=== PATIENT | female | born 1960 | race Caucasian/White ===

== ENCOUNTER 2017-06-11 19:22 | Inpatient (IN) ==
[2017-06-11] MEDS ORDERED: ASPIRIN 325 MG TABLET PO STA (19:46)
[2017-06-11] MEDS ORDERED: ASPIRIN 325 MG TABLET ONE (20:02)
[2017-06-11 20:28] LABS: Basophils # 0.1 10*3/uL (0.0-0.2); Basophils % 0.4 % (0.0-0.8); Eosinophils # 0.3 10*3/uL (0.0-0.87); Eosinophils % 2.2 % (0.00-10.9); Hematocrit 37.6 VOL% (35.7-47.0); Hemoglobin 12.4 GM/DL (12.0-16.0); Immature Granulocytes % 1.1 %; Immature Granulocytes Absolute 0.16 #; Lymphocytes # 3.6 10*3/uL (1.4-4.0); Lymphocytes % 24.7 % (21.3-54.2); Mean Corpuscular Hemoglobin 27 PG (27-34); Mean Platelet Volume 9.9 FL (9.6-12.0); Monocytes # 0.7 10*3/uL (0.11-0.8); Monocytes % 4.6 % (1.7-12.7); Neutrophils # 9.7 10*3/uL (1.4-7.4); Platelet Count 431 T/CUMM (130-400); Red Blood Count 4.53 MC/CUMM (3.8-5.5); Red Cell Distribution Width 13.6 % (9.3-17.3); White Blood Count 14.4 T/CUMM (4-12)
[2017-06-11 20:59] LABS: Alanine Aminotransferase 132 U/L (13-56); Albumin 3.5 G/DL (3.4-5.0); Alkaline Phosphatase 131 U/L (45-117); Aspartate Amino Transferase 82 U/L (0-37); Bilirubin,Total < 0.39 MG/DL (0.2-1.0); Blood Urea Nitrogen 13 MG/DL (7-18); Glucose 448 MG/DL (74-106); Osmolality,Calculated 288.1 MOS/KG (273-304); Potassium 4.4 MMOL/L (3.5-5.1); Sodium 135 MMOL/L (136-145); Total Protein 7.2 G/DL (6.4-8.3)
[2017-06-11] MEDS ORDERED: LORazepam 2 MG/1 ML VIAL IV STA (22:10)
[2017-06-11] MEDS ORDERED: INSULIN REGULAR 100 UNIT/ML IV STA (22:11)
[2017-06-11] MEDS ORDERED: SODIUM CHLORIDE 0.9% 1,000 ML IV STA (22:12)
[2017-06-11] MEDS ORDERED: ONDANSETRON 4 MG/2 ML VIAL IV PRN (22:15)
[2017-06-11] MEDS ORDERED: LORazepam 2 MG/1 ML VIAL ONE (22:26)
[2017-06-11] MEDS ORDERED: INSULIN REGULAR 100 UNIT/ML ONE (22:27)
[2017-06-11] MEDS ORDERED: hydrALAZINE 20 MG/1 ML VIAL IV STA (23:30)
[2017-06-11] MEDS ORDERED: hydrALAZINE 20 MG/1 ML VIAL ONE (23:39)
[2017-06-12] MEDS ORDERED: LABETALOL 20 MG/4 ML SYRINGE IV STA (00:31)
[2017-06-12] MEDS ORDERED: LABETALOL 20 MG/4 ML SYRINGE IV ONE (00:34)
[2017-06-12] MEDS: SODIUM CHLORIDE 0.9% 1,000 ML IV SCH ×3 (01:36→14:48)
[2017-06-12] MEDS ORDERED: ALUMINUM/MAGNES/SIMETH MAX STR 30 ML UDCUP PO PRN (02:04)
[2017-06-12] MEDS ORDERED: PANTOPRAZOLE 40 MG TABLET PO ONE (02:10)
[2017-06-12] MEDS ORDERED: PNEUMOCOCCAL VACCINE (23 VALENT) 0.5 ML VIAL IM ONE (09:00)
[2017-06-12] MEDS: INSULIN LISPRO 100 UNIT/ML SUBCUT SCH ×4 (09:24→20:09)
[2017-06-12] MEDS: PANTOPRAZOLE 40 MG TABLET PO SCH (09:24)
[2017-06-12] MEDS ORDERED: NITROGLYCERIN SL 0.4 MG TABLET SL PRN (12:29)
[2017-06-12] MEDS ORDERED: oxyCODONE IR 5 MG TABLET PO PRN (12:29)
[2017-06-12] MEDS ORDERED: INSULIN PUMP CARTRIDGE MISC SCH (12:30)
[2017-06-12] MEDS ORDERED: INSULIN REGULAR ** CONC 500 UNIT/ML ** 20 ML VIAL SUBCUT SCH (12:30)
[2017-06-12] MEDS ORDERED: hydrALAZINE 20 MG/1 ML VIAL IV PRN (13:00)
[2017-06-12] MEDS ORDERED: DEXTROSE 50% 25 GM/50 ML VIAL IV PRN (13:06)
[2017-06-12] MEDS ORDERED: GLUCAGON 1 MG VIAL IM PRN (13:06)
[2017-06-12] MEDS: CARVEDILOL 6.25 MG TABLET PO SCH ×2 (14:46→16:09)
[2017-06-12] MEDS: ASPIRIN EC 81 MG TABLET PO SCH (14:46)
[2017-06-12] MEDS: ISOSORBIDE MONONITRATE 30 MG TABLET PO SCH (14:46)
[2017-06-12] MEDS: KETOROLAC 0.5% OPH SOLN 3 ML BOTTLE LEFT EYE SCH ×3 (14:46→20:08)
[2017-06-12] MEDS: hydroCHLOROthiazide 25 MG TABLET PO SCH (14:46)
[2017-06-12 16:02] LABS: Troponin I Only 0.635 NG/ML (0.00-0.045)
[2017-06-12] MEDS: DICLOFENAC 1% GEL 100 GM TUBE TOP SCH ×2 (17:05→20:08)
[2017-06-12 19:25] LABS: Troponin I Only 0.584 NG/ML (0.00-0.045)
[2017-06-12] MEDS: ATORVASTATIN 40 MG TABLET PO SCH (20:07)
[2017-06-12] MEDS: CITALOPRAM 20 MG TABLET PO SCH (20:07)
[2017-06-12] MEDS: MULTIVITAMIN (BEROCCA) TABLET PO SCH (20:07)
[2017-06-12] MEDS: OMEGA 3 ACID ETHYL ESTERS 1 GM CAPSULE PO SCH (20:07)
[2017-06-12] MEDS: MAGNESIUM OXIDE 400 MG TABLET PO SCH (20:07)
[2017-06-12] MEDS: GABAPENTIN 300 MG CAPSULE PO SCH (20:07)
[2017-06-12] MEDS: tiZANidine 4 MG TABLET PO SCH (20:08)
[2017-06-12] MEDS: MIRTAZAPINE 15 MG TABLET PO SCH (20:08)
[2017-06-12] MEDS: rOPINIRole 1 MG TABLET PO SCH (20:08)
[2017-06-12] MEDS: LISINOPRIL 20 MG TABLET PO SCH (20:08)
[2017-06-12] MEDS: LATANOPROST 0.005% OPH SOLN 2.5 ML BOTTLE BOTH EYES SCH (20:08)
[2017-06-13] MEDS: SODIUM CHLORIDE 0.9% 1,000 ML IV SCH ×3 (01:05→19:32)
[2017-06-13 06:44] LABS: Basophils # 0.1 10*3/uL (0.0-0.2); Basophils % 0.5 % (0.0-0.8); Eosinophils # 0.4 10*3/uL (0.0-0.87); Eosinophils % 2.9 % (0.00-10.9); Hematocrit 36.7 VOL% (35.7-47.0); Hemoglobin 11.9 GM/DL (12.0-16.0); Immature Granulocytes % 0.7 %; Lymphocytes # 3.6 10*3/uL (1.4-4.0); Mean Corpuscular HGB Conc 32.4 GM/DL (32-36); Mean Corpuscular Hemoglobin 27 PG (27-34); Mean Corpuscular Volume 84.6 FL (87-102); Mean Platelet Volume 9.8 FL (9.6-12.0); Monocytes # 0.7 10*3/uL (0.11-0.8); Monocytes % 5.4 % (1.7-12.7); Neutrophils # 8.5 10*3/uL (1.4-7.4); Neutrophils % 63.5 % (38.7-73.9); Platelet Count 384 T/CUMM (130-400); Red Blood Count 4.34 MC/CUMM (3.8-5.5); Red Cell Distribution Width 13.9 % (9.3-17.3); White Blood Count 13.4 T/CUMM (4-12)
[2017-06-13 06:51] LABS: INR 0.9; PT Patient Result 9.8 SECS
[2017-06-13 07:09] LABS: Calcium 8.4 MG/DL (8.5-10.1); Osmolality,Calculated 282.8 MOS/KG (273-304); Potassium 4.1 MMOL/L (3.5-5.1)
[2017-06-13 07:10] LABS: Apearance,Urine CLEAR (Clear); Bilirubin,Urine Negative (Negative); Blood, Urine Negative (Negative); Glucose,Urine (UA) 50 mg/dL (Negative); Ketones,Urine Negative (Negative); Nitrite,Urine Negative (Negative); Protein,Urine Negative; RBC,Urine <1 /HPF (0-4); Squamous Epithelial Cell,Urine Occasional /HPF (0-10); Urine Color Yellow (Yellow); Urine Urobilinogen < 2.0 EU/DL (0.2-1.0); WBC,Urine <1 /HPF (0-6)
[2017-06-13 07:21] LABS: Albumin 3.2 G/DL (3.4-5.0); Bilirubin,Total 0.4 MG/DL (0.2-1.0); Calcium 8.4 MG/DL (8.5-10.1); Total Protein 6.7 G/DL (6.4-8.3)
[2017-06-13 07:22] LABS: Ferritin 96.4 ng/ml (8-252); Free T4 (Free Thyroxine) 1.11 NG/DL (0.76-1.46); Osmolality,Calculated 285.5 MOS/KG (273-304); Potassium 4.2 MMOL/L (3.5-5.1); Risk Ratio 4.75; Thyroid Stimulating Hormone 1.9 uIU/ml (0.358-3.74); VLDL CHOLESTEROL 56.6 MG/DL
[2017-06-13 08:17] LABS: Hepatitis A Ab IgM Result Negative (Negative); Hepatitis B Core IgM Quant 0.21 Index; Hepatitis B Core IgM Result Negative (Negative); Hepatitis B Surface Ag Quant < 0.10 Index; Hepatitis B Surface Ag Result Negative (Negative); Hepatitis C Virus Ab Quant 0.03 Index; Hepatitis C Virus Ab Result Negative (Negative)
[2017-06-13] MEDS ORDERED: INSULIN REGULAR ** CONC 500 UNIT/ML ** 20 ML VIAL SUBCUT ONE (09:00)
[2017-06-13] MEDS: INSULIN LISPRO 100 UNIT/ML SUBCUT SCH ×2 (09:08→12:44)
[2017-06-13] MEDS: CARVEDILOL 6.25 MG TABLET PO SCH (09:08)
[2017-06-13] MEDS: hydroCHLOROthiazide 25 MG TABLET PO SCH (09:10)
[2017-06-13] MEDS: ASPIRIN EC 81 MG TABLET PO SCH (09:10)
[2017-06-13] MEDS: KETOROLAC 0.5% OPH SOLN 3 ML BOTTLE LEFT EYE SCH ×4 (09:10→22:20)
[2017-06-13] MEDS: LISINOPRIL 20 MG TABLET PO SCH ×2 (09:11→22:22)
[2017-06-13] MEDS: PANTOPRAZOLE 40 MG TABLET PO SCH (09:11)
[2017-06-13] MEDS: OMEGA 3 ACID ETHYL ESTERS 1 GM CAPSULE PO SCH ×2 (09:11→22:21)
[2017-06-13] MEDS: MAGNESIUM OXIDE 400 MG TABLET PO SCH ×2 (09:11→22:22)
[2017-06-13] MEDS: ISOSORBIDE MONONITRATE 30 MG TABLET PO SCH (09:11)
[2017-06-13] MEDS: rOPINIRole 1 MG TABLET PO SCH ×2 (09:11→22:22)
[2017-06-13] MEDS: DICLOFENAC 1% GEL 100 GM TUBE TOP SCH ×4 (09:12→22:23)
[2017-06-13] MEDS: tiZANidine 4 MG TABLET PO SCH ×2 (09:12→22:22)
[2017-06-13] MEDS: metFORMIN 500 MG TABLET PO SCH (09:15)
[2017-06-13] MEDS ORDERED: diphenhydrAMINE CAP 25 MG CAPSULE PO ONE (10:00)
[2017-06-13] MEDS ORDERED: DIAZEPAM 5 MG TABLET PO ONE (10:00)
[2017-06-13] MEDS ORDERED: HEPARIN/NACL 0.9% 2 UNITS/ML 1,000 ML IV ONE ×2 (12:23→12:28)
[2017-06-13] MEDS ORDERED: LIDOCAINE 1% 20 ML VIAL ONE (12:23)
[2017-06-13] MEDS ORDERED: MIDAZOLAM 2 MG/2 ML VIAL ONE (12:46)
[2017-06-13] MEDS ORDERED: HYDROmorphone 2 MG/1 ML VIAL ONE (12:46)
[2017-06-13] MEDS ORDERED: NITROGLYCERIN DRIP 50 MG/250 ML BOTTLE IV ONE (12:54)
[2017-06-13] MEDS ORDERED: VERAPAMIL 5 MG/2 ML VIAL ONE (12:54)
[2017-06-13] MEDS ORDERED: ENOXAPARIN 60 MG/0.6 ML SYRINGE ONE (12:57)
[2017-06-13] MEDS ORDERED: ENOXAPARIN 30 MG/0.3 ML SYRINGE ONE (12:59)
[2017-06-13] MEDS ORDERED: LABETALOL 20 MG/4 ML SYRINGE IV ONE (13:20)
[2017-06-13] MEDS ORDERED: BIVALIRUDIN 250 MG VIAL IV ONE (13:22)
[2017-06-13] MEDS ORDERED: TICAGRELOR 90 MG TABLET ONE (13:22)
[2017-06-13] MEDS ORDERED: SODIUM CHLORIDE 0.9% 1,000 ML IV SCH (14:00)
[2017-06-13] MEDS ORDERED: cloNIDine 0.1 MG TABLET ONE ×2 (14:25→14:26)
[2017-06-13] MEDS: CARVEDILOL 25 MG TABLET PO SCH (19:37)
[2017-06-13] MEDS: LATANOPROST 0.005% OPH SOLN 2.5 ML BOTTLE BOTH EYES SCH (22:20)
[2017-06-13] MEDS: MULTIVITAMIN (BEROCCA) TABLET PO SCH (22:21)
[2017-06-13] MEDS: MIRTAZAPINE 15 MG TABLET PO SCH (22:21)
[2017-06-13] MEDS: TICAGRELOR 90 MG TABLET PO SCH (22:21)
[2017-06-13] MEDS: GABAPENTIN 300 MG CAPSULE PO SCH (22:22)
[2017-06-13] MEDS: CITALOPRAM 20 MG TABLET PO SCH (22:22)
[2017-06-13] MEDS: ATORVASTATIN 40 MG TABLET PO SCH (22:23)
[2017-06-14] MEDS: SODIUM CHLORIDE 0.9% 1,000 ML IV SCH ×3 (01:49→18:42)
[2017-06-14 04:45] LABS: Basophils # 0.1 10*3/uL (0.0-0.2); Basophils % 0.4 % (0.0-0.8); Eosinophils # 0.3 10*3/uL (0.0-0.87); Eosinophils % 2.4 % (0.00-10.9); Hematocrit 31.6 VOL% (35.7-47.0); Hemoglobin 10.3 GM/DL (12.0-16.0); Immature Granulocytes % 0.7 %; Lymphocytes # 2.5 10*3/uL (1.4-4.0); Lymphocytes % 18.2 % (21.3-54.2); Mean Corpuscular HGB Conc 32.6 GM/DL (32-36); Mean Corpuscular Hemoglobin 27 PG (27-34); Mean Corpuscular Volume 83.6 FL (87-102); Mean Platelet Volume 10.2 FL (9.6-12.0); Monocytes # 0.8 10*3/uL (0.11-0.8); Monocytes % 5.4 % (1.7-12.7); Neutrophils # 10.1 10*3/uL (1.4-7.4); Neutrophils % 72.9 % (38.7-73.9); Platelet Count 351 T/CUMM (130-400); Red Blood Count 3.78 MC/CUMM (3.8-5.5); Red Cell Distribution Width 13.9 % (9.3-17.3); White Blood Count 13.8 T/CUMM (4-12)
[2017-06-14 05:25] LABS: Blood Urea Nitrogen 13 MG/DL (7-18); Calcium 8.5 MG/DL (8.5-10.1); Glucose 201 MG/DL (74-106); Osmolality,Calculated 280.7 MOS/KG (273-304); Sodium 138 MMOL/L (136-145)
[2017-06-14 05:27] LABS: Troponin I Only 0.197 NG/ML (0.00-0.045)
[2017-06-14] MEDS: rOPINIRole 1 MG TABLET PO SCH ×2 (09:23→22:15)
[2017-06-14] MEDS: ASPIRIN EC 81 MG TABLET PO SCH (09:24)
[2017-06-14] MEDS: metFORMIN 500 MG TABLET PO SCH (09:24)
[2017-06-14] MEDS: tiZANidine 4 MG TABLET PO SCH ×2 (09:24→22:16)
[2017-06-14] MEDS: OMEGA 3 ACID ETHYL ESTERS 1 GM CAPSULE PO SCH ×2 (09:24→22:11)
[2017-06-14] MEDS: PANTOPRAZOLE 40 MG TABLET PO SCH (09:24)
[2017-06-14] MEDS: TICAGRELOR 90 MG TABLET PO SCH (09:24)
[2017-06-14] MEDS: MAGNESIUM OXIDE 400 MG TABLET PO SCH ×2 (09:25→22:11)
[2017-06-14] MEDS: ISOSORBIDE MONONITRATE 30 MG TABLET PO SCH (09:25)
[2017-06-14] MEDS: LISINOPRIL 20 MG TABLET PO SCH ×2 (09:25→22:12)
[2017-06-14] MEDS: DICLOFENAC 1% GEL 100 GM TUBE TOP SCH ×3 (09:25→22:17)
[2017-06-14] MEDS: KETOROLAC 0.5% OPH SOLN 3 ML BOTTLE LEFT EYE SCH ×3 (09:25→22:04)
[2017-06-14] MEDS: CARVEDILOL 25 MG TABLET PO SCH ×2 (09:25→16:41)
[2017-06-14] MEDS ORDERED: CLOPIDOGREL 75 MG TABLET PO STA (17:18)
[2017-06-14] MEDS: CITALOPRAM 20 MG TABLET PO SCH (22:09)
[2017-06-14] MEDS: MULTIVITAMIN (BEROCCA) TABLET PO SCH (22:09)
[2017-06-14] MEDS: ATORVASTATIN 40 MG TABLET PO SCH (22:10)
[2017-06-14] MEDS: GABAPENTIN 300 MG CAPSULE PO SCH (22:12)
[2017-06-14] MEDS: MIRTAZAPINE 15 MG TABLET PO SCH (22:14)
[2017-06-14] MEDS: LATANOPROST 0.005% OPH SOLN 2.5 ML BOTTLE BOTH EYES SCH (22:20)
[2017-06-15 05:38] LABS: Basophils # 0.1 10*3/uL (0.0-0.2); Basophils % 0.4 % (0.0-0.8); Eosinophils # 0.3 10*3/uL (0.0-0.87); Eosinophils % 2.4 % (0.00-10.9); Hematocrit 31.8 VOL% (35.7-47.0); Hemoglobin 10.4 GM/DL (12.0-16.0); Immature Granulocytes % 0.6 %; Immature Granulocytes Absolute 0.09 #; Lymphocytes % 21.8 % (21.3-54.2); Mean Corpuscular HGB Conc 32.7 GM/DL (32-36); Mean Corpuscular Hemoglobin 28 PG (27-34); Mean Corpuscular Volume 84.4 FL (87-102); Mean Platelet Volume 10.2 FL (9.6-12.0); Monocytes # 0.8 10*3/uL (0.11-0.8); Monocytes % 5.9 % (1.7-12.7); Neutrophils # 9.6 10*3/uL (1.4-7.4); Neutrophils % 68.9 % (38.7-73.9); Platelet Count 336 T/CUMM (130-400); Red Blood Count 3.77 MC/CUMM (3.8-5.5); Red Cell Distribution Width 14.1 % (9.3-17.3); White Blood Count 13.9 T/CUMM (4-12)
[2017-06-15 06:02] LABS: Calcium 8.5 MG/DL (8.5-10.1); Osmolality,Calculated 289.1 MOS/KG (273-304); Potassium 4.5 MMOL/L (3.5-5.1)
[2017-06-15] MEDS: SODIUM CHLORIDE 0.9% 1,000 ML IV SCH ×3 (09:03→16:05)
[2017-06-15] MEDS: rOPINIRole 1 MG TABLET PO SCH ×2 (09:06→21:29)
[2017-06-15] MEDS: OMEGA 3 ACID ETHYL ESTERS 1 GM CAPSULE PO SCH ×2 (09:06→21:22)
[2017-06-15] MEDS: ASPIRIN EC 81 MG TABLET PO SCH (09:06)
[2017-06-15] MEDS: PANTOPRAZOLE 40 MG TABLET PO SCH (09:06)
[2017-06-15] MEDS: ISOSORBIDE MONONITRATE 30 MG TABLET PO SCH (09:07)
[2017-06-15] MEDS: LISINOPRIL 20 MG TABLET PO SCH ×2 (09:07→21:23)
[2017-06-15] MEDS: MAGNESIUM OXIDE 400 MG TABLET PO SCH ×2 (09:07→21:22)
[2017-06-15] MEDS: tiZANidine 4 MG TABLET PO SCH ×2 (09:07→21:23)
[2017-06-15] MEDS: metFORMIN 500 MG TABLET PO SCH (09:07)
[2017-06-15] MEDS: CARVEDILOL 25 MG TABLET PO SCH ×2 (09:07→18:18)
[2017-06-15] MEDS: DICLOFENAC 1% GEL 100 GM TUBE TOP SCH ×4 (09:08→21:26)
[2017-06-15] MEDS: KETOROLAC 0.5% OPH SOLN 3 ML BOTTLE LEFT EYE SCH ×4 (09:08→21:25)
[2017-06-15] MEDS: CLOPIDOGREL 75 MG TABLET PO SCH (13:48)
[2017-06-15] MEDS ORDERED: ROSUVASTATIN 20 MG TABLET PO SCH (21:00)
[2017-06-15] MEDS: GABAPENTIN 300 MG CAPSULE PO SCH (21:22)
[2017-06-15] MEDS: MULTIVITAMIN (BEROCCA) TABLET PO SCH (21:22)
[2017-06-15] MEDS: CITALOPRAM 20 MG TABLET PO SCH (21:22)
[2017-06-15] MEDS: MIRTAZAPINE 15 MG TABLET PO SCH (21:23)
[2017-06-15] MEDS: LATANOPROST 0.005% OPH SOLN 2.5 ML BOTTLE BOTH EYES SCH (21:29)
[2017-06-16] MEDS: SODIUM CHLORIDE 0.9% 1,000 ML IV SCH ×2 (01:30→08:55)
[2017-06-16 05:03] LABS: Basophils # 0.1 10*3/uL (0.0-0.2); Basophils % 0.4 % (0.0-0.8); Eosinophils # 0.5 10*3/uL (0.0-0.87); Eosinophils % 3.7 % (0.00-10.9); Hematocrit 31.4 VOL% (35.7-47.0); Hemoglobin 10.4 GM/DL (12.0-16.0); Immature Granulocytes % 0.4 %; Immature Granulocytes Absolute 0.06 #; Lymphocytes # 3.4 10*3/uL (1.4-4.0); Lymphocytes % 25.1 % (21.3-54.2); Mean Corpuscular HGB Conc 33.1 GM/DL (32-36); Mean Corpuscular Hemoglobin 28 PG (27-34); Mean Corpuscular Volume 84.4 FL (87-102); Monocytes # 0.7 10*3/uL (0.11-0.8); Monocytes % 5.3 % (1.7-12.7); Neutrophils # 8.7 10*3/uL (1.4-7.4); Neutrophils % 65.1 % (38.7-73.9); Platelet Count 352 T/CUMM (130-400); Red Blood Count 3.72 MC/CUMM (3.8-5.5); Red Cell Distribution Width 14.1 % (9.3-17.3); White Blood Count 13.4 T/CUMM (4-12)
[2017-06-16 05:37] LABS: Calcium 8.6 MG/DL (8.5-10.1); Magnesium 2.4 MG/DL (1.8-2.4); Osmolality,Calculated 284.4 MOS/KG (273-304)
[2017-06-16 08:36] VITALS: BP 152/71
[2017-06-16] MEDS: rOPINIRole 1 MG TABLET PO SCH (08:51)
[2017-06-16] MEDS: metFORMIN 500 MG TABLET PO SCH (08:51)
[2017-06-16] MEDS: ASPIRIN EC 81 MG TABLET PO SCH (08:52)
[2017-06-16] MEDS: ISOSORBIDE MONONITRATE 30 MG TABLET PO SCH (08:52)
[2017-06-16] MEDS: tiZANidine 4 MG TABLET PO SCH (08:52)
[2017-06-16] MEDS: OMEGA 3 ACID ETHYL ESTERS 1 GM CAPSULE PO SCH (08:52)
[2017-06-16] MEDS: CARVEDILOL 25 MG TABLET PO SCH (08:52)
[2017-06-16] MEDS: MAGNESIUM OXIDE 400 MG TABLET PO SCH (08:52)
[2017-06-16] MEDS: LISINOPRIL 20 MG TABLET PO SCH (08:52)
[2017-06-16] MEDS: CLOPIDOGREL 75 MG TABLET PO SCH (08:52)
[2017-06-16] MEDS: PANTOPRAZOLE 40 MG TABLET PO SCH (08:52)
[2017-06-16] MEDS: DICLOFENAC 1% GEL 100 GM TUBE TOP SCH (08:53)
[2017-06-16] MEDS: KETOROLAC 0.5% OPH SOLN 3 ML BOTTLE LEFT EYE SCH (08:53)
== END 2017-06-16 10:09 | disposition home or self-care (01) | DRG 247 ==
LOC: N.ED 19:22 → N.EDINP 22:15 → N.5E 23:04 → N.TELES 06-13 17:16
PROVIDERS: ADMIT Internal Medicine; ATTEND Internal Medicine
PROC: CLCCHCL (ICD-10-PCS; 2017-06-13 11:15)